=== PATIENT | male | born 1930 | race Caucasian/White ===

== ENCOUNTER → 2016-10-28 18:57 | Outpatient (CLI) | payer MEDICARE, OTHER ==
[2015-12-19 10:24] VITALS: BMI 25.0
[~2016-10-28 18:57] MED LIST: BAYER CHEWABLE81 MG PO; BENADRYL25 MG PO; COLACE100 MG PO; COREG6.25 MG PO; HYDROCODONE-APA1 TAB PO; ISOSORBIDE MONO30 M1 PO; LISINOPRIL10 MG PO; LOVENOX40 MG/0.4 SQ; MILK OF MAGNESI30 ML PO; MIRALAX17 GM PO; MUCINEX600 MG PO; ONDANSETRON4 MG/2 M3 IV; PLAVIX75 MG PO; PRAVACHOL40 MG PO
== END | disposition home or self-care (01) ==
LOC: D.LABREF 18:57
DX: N39.0 Urinary tract infection, site not specified (principal)

== ENCOUNTER → 2017-01-01 11:43 | Outpatient (CLI) | payer MEDICARE, OTHER ==
[2015-12-19 10:24] VITALS: BMI 25.0
[2017-01-01 13:35] LABS: CALC OSMOLALITY 280 mosm/kg (275-300); CALCIUM 9.5 mg/dL (8.5-10.1); CARBON DIOXIDE 23.3 mmol/L (21.0-32.0); CHLORIDE - SERUM 107 mmol/L (98-107); GLUCOSE 121 mg/dL (74-106); POTASSIUM - SERUM 4.2 mmol/L (3.5-5.1); SODIUM 140 mmol/L (136-145); UREA NITROGEN 15 mg/dL (7-18); eGFR NON AFRICAN AMERICAN 75 mL/min (90-120)
== END | disposition home or self-care (01) ==
LOC: D.LABREF 11:43
PROVIDERS: Family Medicine
DX: S42.201A Unspecified fracture of upper end of right humerus, initial encounter for closed fracture (principal)

== ENCOUNTER 2017-04-28 10:04 | Observation (INO) | payer MEDICARE, OTHER ==
[~2017-04-28] VITALS: Ht 167.6 cm; Wt 65.3 kg
[2017-04-28 11:02] LABS: BASOPHILS 0.2 % (0-2); EOSINOPHILS 1.4 % (0-7); HEMATOCRIT 46.6 % (42.0-54.0); HEMOGLOBIN 15.7 g/dL (13.5-17.5); IMMATURE GRANULOCYTES 0.2 % (0-5); LYMPHOCYTES 25.9 % (15-50); MCH 30.7 pg (26.0-34.0); MCHC 33.7 g/dL (31.0-37.0); MCV 91.2 fL (80.0-100.0); MEAN PLATELET VOLUME 9.9 fL (7.4-10.4); MONOCYTES 10.8 % (2-11); NEUTROPHILS 61.5 % (40-80); PLATELET COUNT 222 10x3/uL (130-400); RBC 5.11 10x6/uL (4.20-6.10); WBC 5.8 10x3/uL (4.8-10.8)
[2017-04-28 11:10] LABS: ALBUMIN 3.6 g/dL (3.4-5.0); ALKALINE PHOSPHATASE 84 U/L (46-116); ALT (SGPT) 27 U/L (10-68); CALC OSMOLALITY 281 mosm/kg (275-300); CALCIUM 9.1 mg/dL (8.5-10.1); CHLORIDE - SERUM 107 mmol/L (98-107); CREATININE - SERUM 1.1 mg/dL (0.6-1.3); GLUCOSE 117 mg/dL (74-106); POTASSIUM - SERUM 3.9 mmol/L (3.5-5.1); PROTEIN - SERUM 7.1 g/dL (6.4-8.2); SODIUM 139 mmol/L (136-145); UREA NITROGEN 20 mg/dL (7-18); eGFR NON AFRICAN AMERICAN 67 mL/min (90-120)
[2017-04-28 11:25] LABS: CREATINE KINASE 45 UL (21-232); MAGNESIUM - SERUM 1.9 mg/dL (1.8-2.4); PRO BNP 1371 pg/mL (0-450)
[2017-04-28 11:27] LABS: TROPONIN-I 0.152 ng/mL (0.000-0.060)
[2017-04-28 14:05] LABS: T4 THYROXINE 7.2 ug/dL (4.7-13.3); THYROID STIMULATING HORMONE 2.19 uIU/mL (0.36-3.74)
[2017-04-28] MEDS ORDERED: LISINOPRIL5 MG PO (15:52)
--- NOTE | 2017-04-28 16:29 | NUR ---
IL RECIEVED FROM ER. DENIES ANY DISCOMFORT OR NEEDS AT PRESENT TIME. IV TO LEFT ARM. ALERT AND ORENTED. TELEMERTY SHOWS SB WITH BBB. ORIENTED TO ROOM. AT BEDSIDE. O2 AT 2 L/M PER NC. CALL LIGHT IN REACH WITH SR UP
[2017-04-28 16:43] VITALS: BP 133/64
[2017-04-28 19:36] VITALS: BP 136/69
--- NOTE | 2017-04-28 20:00 | NUR ---
RESTING IN BED WITH NO DISTRESS. SEE SHIFT ASSESSMENT AND CPOC.
[2017-04-29] VITALS (7 sets, daily range): BP systolic 96–145; BP diastolic 60–79; Ht 167.6 cm; Wt 65.3 kg
--- NOTE | 2017-04-29 05:08 | NUR ---
PT RESTING WITH EYES CLOSED. RESPS NONLABORED WITH O2 @ 2L/NC IN PLACE. MONITOR AND CPOC.
[2017-04-29 06:57] LABS: BASOPHILS 0.1 % (0-2); EOSINOPHILS 1.3 % (0-7); HEMATOCRIT 44.9 % (42.0-54.0); HEMOGLOBIN 14.9 g/dL (13.5-17.5); IMMATURE GRANULOCYTES 0.3 % (0-5); LYMPHOCYTES 27.1 % (15-50); MCH 30.3 pg (26.0-34.0); MCHC 33.2 g/dL (31.0-37.0); MCV 91.4 fL (80.0-100.0); MEAN PLATELET VOLUME 9.6 fL (7.4-10.4); MONOCYTES 11.4 % (2-11); NEUTROPHILS 59.8 % (40-80); PLATELET COUNT 210 10x3/uL (130-400); RBC 4.91 10x6/uL (4.20-6.10); WBC 6.8 10x3/uL (4.8-10.8)
--- NOTE | 2017-04-29 07:20 | NUR ---
RECEIVED REPORT. ASSUMED CARE OF PATIENT. LYING IN BED WITH EYES OPEN, RESP EVEN AND UNLABORED. DENIES CHEST PAIN OR DISCOMFORT. ALERT/ORIENTED. DENIES NEEDS AT THIS TIME. NO DISTRESS. CALL LIGHT WITHIN REACH.
[2017-04-29 07:53] LABS: ALBUMIN 3.5 g/dL (3.4-5.0); ALKALINE PHOSPHATASE 82 U/L (46-116); ALT (SGPT) 26 U/L (10-68); BILIRUBIN - TOTAL 0.84 mg/dL (0.2-1.3); CALC OSMOLALITY 283 mosm/kg (275-300); CALCIUM 9.1 mg/dL (8.5-10.1); CARBON DIOXIDE 27.3 mmol/L (21.0-32.0); CHLORIDE - SERUM 107 mmol/L (98-107); CHOL - HDL RATIO 5.6 ratio (2.3-4.9); CHOLESTEROL, TOTAL 150 mg/dL (0-200); CKMB 7.4 U/L (0.0-3.6); CREATINE KINASE 88 UL (21-232); CREATININE - SERUM 1.1 mg/dL (0.6-1.3); GLUCOSE 90 mg/dL (74-106); HDL CHOLESTEROL 27 mg/dL (32-96); LDL CHOLESTEROL 102 mg/dL (0-100); LDL-HDL RATIO 3.8 ratio (1.5-3.5); POTASSIUM - SERUM 4.2 mmol/L (3.5-5.1); PROTEIN - SERUM 6.8 g/dL (6.4-8.2); SODIUM 141 mmol/L (136-145); TRIGLYCERIDE 106 mg/dL (30-200); UREA NITROGEN 20 mg/dL (7-18); eGFR NON AFRICAN AMERICAN 67 mL/min (90-120)
[2017-04-29 07:54] LABS: TROPONIN-I 2.234 ng/mL (0.000-0.060)
--- NOTE | 2017-04-29 09:15 | NUR ---
CALLED [facility] AND SPOKE WITH TARI, INQUIRED ABOUT ECHO DONE YESTERDAY AT 1300, REQUESTING REPORT. HAS NOT READ REPORT. THANKED TARI FOR THE UPDATE.
--- NOTE | 2017-04-29 11:40 | NUR ---
SHOWER COMPLETED AND ASSISTED PATIENT BACK TO BED. TELEMETRY APPLIED. PATIENT RESTING IN BED AT THIS TIME. SINUS TACH ON TELEMETRY. AT BEDSIDE. NO DISTRESS.
--- NOTE | 2017-04-29 12:25 | NUR ---
SPOKE TO TO NOTIFY HIM THAT PATIENT HAS BEEN IN NORMAL SINUS RHYTHM IN 70'S UNTIL ABOUT 45 MINUTES AGO AND PATIENT IS NOW [address] AND STAYING THERE. INFORMED MD THAT READ THE ECHO THIS AM AND EF IS 20-25% COREG 3.125MG GIVEN THIS AM, BP AT THIS TIME IS 132/79. MD STATES WE WILL JUST KEEP HIM ON THE COREG RIGHT NOW. MD STATES THAT PATIENTS COMPLAINTS OF FEELING TIRED ARE CONTRIBUTING FROM THE TACHYCARDIA. NO NEW ORDERS RECEIVED AT THIS TIME.
--- NOTE | 2017-04-29 14:55 | NUR ---
PATIENT RESTING IN BED WITH EYES OPEN, ON CELL PHONE CONVERSING. PATIENTS AT BEDSIDE. CALL LIGHT WITHIN REACH. DENIES NEEDS AT THIS TIME. NO DISTRESS. HR DECREASED TO 100 AT THIS TIME.
[2017-04-30 01:00] VITALS: BP 112/65; BP 143/79
[2017-04-30 03:10] LABS: BASOPHILS 0.1 % (0-2); EOSINOPHILS 1.1 % (0-7); HEMATOCRIT 42.9 % (42.0-54.0); HEMOGLOBIN 14.3 g/dL (13.5-17.5); IMMATURE GRANULOCYTES 0.4 % (0-5); MCH 30.3 pg (26.0-34.0); MCHC 33.3 g/dL (31.0-37.0); MCV 90.9 fL (80.0-100.0); MEAN PLATELET VOLUME 9.9 fL (7.4-10.4); MONOCYTES 9.8 % (2-11); NEUTROPHILS 59.6 % (40-80); PLATELET COUNT 221 10x3/uL (130-400); RBC 4.72 10x6/uL (4.20-6.10)
[2017-04-30 03:23] LABS: ANION GAP 12.2 mmol/L (8-16); CALCIUM 8.9 mg/dL (8.5-10.1); CARBON DIOXIDE 26.5 mmol/L (21.0-32.0); CREATININE - SERUM 1.1 mg/dL (0.6-1.3); POTASSIUM - SERUM 3.7 mmol/L (3.5-5.1)
[2017-04-30 04:21] VITALS: BP 166/84
[2017-04-30] MEDS ORDERED: COREG 3.1253.125 MG PO (06:54)
[2017-04-30 08:19] VITALS: BP 155/79
--- NOTE | 2017-04-30 11:00 | NUR ---
ALERT AND ORIENTED X4. RESTING IN BED. REQUESTING BE PAGED TO KNOW WHEN ROUNDING. OK TO DC PER . NOT ROUNDING UNTIL AFTER CLINIC. PATIENT'S INSISTING TO BE DISCHARGED RIGHT NOW. BEGIN DC PROCESS. BED LOCKED AND LOW. CALL LIGHT IN REACH. TWO SIDERAILS UP. REFUSE SCDs.
--- NOTE | 2017-04-30 13:49 | NUR ---
ALERT AND ORIENTED X4. RESTING IN BED. AT BEDSIDE. DISCHARGE INSTRUCTIONS GIVEN VERBALLY AND WRITTEN. DC LT AC IV TIP INTACT. DISCHARGE PAPERS SIGNED ON CHART. ESCORT TO RIDE VIA WHEELCHAIR. REMAINS FREE FROM INJURY.
--- NOTE | 2017-04-30 13:54 | EC ---
PATIENT:KRIS DELUCA DATE OF SERVICE: 04/28/17 SEX: M MEDICAL RECORD: [id number] DATE OF : 28 LOCATION:[address] AGE OF PATIENT: 86 ADMISSION DATE: 04/28/17 REFERRING PHYSICIAN: INTERPRETING PHYSICIAN: AMARILIS PEREZ MD ECHOCARDIOGRAM REPORT ECHO CHARGES 4 ECHO COMPLETE CLINICAL DIAGNOSIS: HYPOTENSION ECHOCARDIOGRAPHIC MEASUREMENTS (adult normal given) AC root (d.<3.7cm) 3.3 cm LV Septum d (<1.2 cm> 1.4 cm Valve Excursion 0.8 cm LV Septum (systole) 1.6 cm Left Atria (s.<4.0cm> 4.3 cm LVPW d(<1.2cm) 1.2 cm RV (d.<2.3cm) 2.4 cm LVPW (sytole) 1.7 cm LV diastole(<5.6CM) 6.2 cm MV E-F(>70mm/sec) cm LV systole 5.3 cm LVOT Diameter 2.0 cm MV exc.(>10mm) cm Est.ejection fraction (50-75%) % Pericardial Effusion N DOPPLER: LVIT cm/sec A 43.0 cm/sec E 72.0 cm/sec LA cm/sec RVSP 26.0 mmHg LVOT 75.0 cm/sec AOP1/2T 518.0m/s Asc. Ao 141 cm/sec RVOT 66.0 cm/sec RA cm/sec PA 74.0 cm/sec AV Gradient Peak 8.0 mmHg AV Mean 4.2 mmHg AV Area 1.6 cm MV Gradient Peak 3.4 mmHg MV Mean 1.4 mmHg MV Area cm COMMENTS: Basin Tender: 1 TORREY STANTONOE Leather Polisher: 1 Dr. Perez TAPE# PACS DATE OF SERVICE: 04/28/2017 Echocardiogram FINDINGS: 1. Left ventricular chamber size is dilated. Left ventricular systolic function is markedly reduced, overall ejection fraction 20% to 25%. 2. Left atrium, right atrium, and right ventricle chamber sizes are dilated giving 4-chamber dilatation. Left atrium measures 4.3 cm. 3. Valvular structures have normal structure and motion. ECHOCARDIOGRAM REPORT [id number] KRIS DELUCA 4. Doppler interrogation reveals moderate aortic insufficiency, moderate mitral regurgitation, moderate tricuspid regurgitation, no other valvular insufficiency or stenosis. Pulmonary systolic pressure is preserved at 26 mmHg. 5. No evidence of pericardial effusion or left ventricular thrombus. TRANSINT:[id number] Voice Confirmation ID: [id number] DOCUMENT ID: [id number] AMARILIS PEREZ MD at 1354 CC: [id number] DICTATION DATE: 04/29/17 1100 [employer] AGENT: 04/29/17 1205 ADM IN [facility] [address] [place] [address]
== END 2017-04-30 14:08 | disposition home or self-care (01) ==
LOC: D.ER 10:04 → D.M2 13:22 → OBSVTIME 13:22 → D.M2 04-30 14:08
PROVIDERS: Emergency Medicine; ADMIT Family Medicine
DX: R00.0 Tachycardia, unspecified (principal); E78.5 Hyperlipidemia, unspecified; I24.8 Other forms of acute ischemic heart disease; I11.0 Hypertensive heart disease with heart failure; I50.22 Chronic systolic (congestive) heart failure; I25.10 Atherosclerotic heart disease of native coronary artery without angina pectoris; I95.9 Hypotension, unspecified; Z86.73 Personal history of transient ischemic attack (TIA), and cerebral infarction without residual deficits

== ENCOUNTER 2017-08-02 13:44 | Emergency (ER) | payer MEDICARE, OTHER ==
[2017-04-29 14:29] VITALS: BMI 23.2
[~2017-08-02 13:44] MED LIST changes: +COREG 3.1253.125 MG PO; +LISINOPRIL5 MG PO
[2017-08-02 14:18] LABS: BASOPHILS 0.2 % (0-2); EOSINOPHILS 1.4 % (0-7); HEMATOCRIT 43.1 % (42.0-54.0); HEMOGLOBIN 14.1 g/dL (13.5-17.5); LYMPHOCYTES 29.6 % (15-50); MCH 30.2 pg (26.0-34.0); MCHC 32.7 g/dL (31.0-37.0); MCV 92.3 fL (80.0-100.0); MEAN PLATELET VOLUME 9.7 fL (7.4-10.4); MONOCYTES 8.4 % (2-11); NEUTROPHILS 60.4 % (40-80); PLATELET COUNT 189 10x3/uL (130-400); RBC 4.67 10x6/uL (4.20-6.10); RDW 13.7 % (11.5-14.5); WBC 4.4 10x3/uL (4.8-10.8)
[2017-08-02 14:26] LABS: INR 1.05 (0.85-1.17); PROTIME 13.6 SECONDS (11.6-15.0)
[2017-08-02 14:31] LABS: ALBUMIN 3.6 g/dL (3.4-5.0); ANION GAP 8.4 mmol/L (8-16); BILIRUBIN - TOTAL 0.47 mg/dL (0.2-1.3); CALCIUM 9.5 mg/dL (8.5-10.1); CARBON DIOXIDE 25.6 mmol/L (21.0-32.0); CREATININE - SERUM 1.1 mg/dL (0.6-1.3); PROTEIN - SERUM 6.8 g/dL (6.4-8.2)
== END 2017-08-02 16:45 | disposition home or self-care (01) ==
LOC: D.ER 13:44
PROVIDERS: Emergency Medicine
DX: R55 Syncope and collapse (principal); I10 Essential (primary) hypertension; I50.9 Heart failure, unspecified; I44.0 Atrioventricular block, first degree

== ENCOUNTER 2018-02-14 14:00 | Emergency (ER) | payer MEDICARE, OTHER ==
[2017-04-29 14:29] VITALS: BMI 23.2
[2018-02-14 14:39] LABS: BASOPHILS 0.2 % (0-2); EOSINOPHILS 1.3 % (0-7); HEMATOCRIT 43.6 % (42.0-54.0); HEMOGLOBIN 14.7 g/dL (13.5-17.5); IMMATURE GRANULOCYTES 0.2 % (0-5); LYMPHOCYTES 30.3 % (15-50); MCH 30.5 pg (26.0-34.0); MCHC 33.7 g/dL (31.0-37.0); MCV 90.5 fL (80.0-100.0); MEAN PLATELET VOLUME 9.3 fL (7.4-10.4); MONOCYTES 9.4 % (2-11); NEUTROPHILS 58.6 % (40-80); PLATELET COUNT 210 10x3/uL (130-400); RBC 4.82 10x6/uL (4.20-6.10); RDW 13.6 % (11.5-14.5); WBC 5.4 10x3/uL (4.8-10.8)
[2018-02-14 14:55] LABS: ALBUMIN 3.5 g/dL (3.4-5.0); ANION GAP 10.6 mmol/L (8-16); BILIRUBIN - TOTAL 0.66 mg/dL (0.2-1.3); CALCIUM 9.8 mg/dL (8.5-10.1); CARBON DIOXIDE 25.6 mmol/L (21.0-32.0); CREATININE - SERUM 1.1 mg/dL (0.6-1.3); POTASSIUM - SERUM 4.2 mmol/L (3.5-5.1); PROTEIN - SERUM 6.9 g/dL (6.4-8.2)
[2018-02-14 15:05] LABS: APPEARANCE CLEAR (CLEAR); BILIRUBIN NEGATIVE (NEGATIVE); COLOR DK YELLOW (YELLOW); GLUCOSE NEGATIVE (NEGATIVE); KETONE NEGATIVE (NEGATIVE); NITRITE NEGATIVE (NEGATIVE); PROTEIN NEGATIVE (NEGATIVE); SPECIFIC GRAVITY 1.025 (1.005-1.020); UROBILINOGEN NORMAL (NORMAL)
== END 2018-02-14 19:13 | disposition home or self-care (01) ==
LOC: D.ER 14:00
PROVIDERS: Family Medicine
DX: E86.0 Dehydration (principal); R53.1 Weakness; I50.9 Heart failure, unspecified; I10 Essential (primary) hypertension; I44.0 Atrioventricular block, first degree; I44.7 Left bundle-branch block, unspecified

== ENCOUNTER → 2018-07-31 07:04 | Outpatient (CLI) | payer MEDICARE ==
[2017-04-29 14:29] VITALS: BMI 23.2
== END | disposition home or self-care (01) ==
LOC: D.RAD 07:04
DX: R13.12 Dysphagia, oropharyngeal phase (principal)